=== PATIENT | female | born 1960 | race Caucasian/White ===

== ENCOUNTER 2024-02-27 00:27 | Emergency (ER) | payer MEDICARE, OTHER, SELFPAY ==
[2024-02-27 00:30] VITALS: BP 168/92
--- NOTE | 2024-02-27 01:06 | ED.GENMED ---
History of Present Illness
General
Chief Complaint: Flank Pain
Source: patient
Exam Limitations: none
Time Seen by Provider: 02/27/24 00:52
Travel History
Have you had any contact with someone who has COVID-19?: No
Do you have any symptoms of coronavirus? Fever > 100 degrees, chills, cough, shortness of breath, sore throat, loss of taste or smell, muscle aches, or headache?: No
History of Present Illness
History of Present Illness:
This is a 64 year old female that comes in with c/o left sided flank pain. States that 3 weeks ago she felt like she passed a stone when she was away. States that last week on she had some left sided abd pain but it went away. Then tonight
she started with pain and it is the worse yet. States that the patient goes down into her urethra. States that it also radiates into her back. States that she is nauseated and took Ibuprofen 600mg about 3 hours ago. States that she also has urinary
burning. Denies any fever, chills, chest pain, SOB, vomiting, diarrhea, headache, dizziness.
Past History
Past History
ED Past Medical History: Arrthythmia (Atrial fib), GERD, Psychiatric (Anxiety, ), Other and Other (diverticulosis/PAD, Colitis, GI bleeding)
ED Past Surgical History: Gynecological (Uterine fibroid removed) and Orthopedic (Right rotator cuff surgery)
Social History
Tobacco: Former smoker
Alcohol: Occasional
Personal: (Same sex partner)
Living: with family
Review of Systems
Review of Systems
All Other Systems: ROS reviewed and negative except as documented in HPI and ROS
Constitutional: Reports no symptoms; Denies fever or chills
EENT: Reports no symptoms
Respiratory: Reports no symptoms; Denies cough or trouble breathing
Cardiac: Reports no symptoms; Denies chest pain
ABD/GI: Reports abdominal pain and nausea; Denies vomiting or diarrhea
: Reports dysuria and flank pain (Left sided); Denies frequency or urgency
Musculoskeletal: Reports no symptoms
Skin: Reports no symptoms
Neurological: Reports no symptoms; Denies dizzy or headache
Psychiatric: Reports no symptoms
Phy Exam
General Physical Exam
General Presentation: mild distress
General age: appears stated age
General Skin: warm and dry
General Habitus: normal
General Mental: alert
General Hydration: appears well hydrated
ENT Exam
ENT Exam: TM's normal, pharynx normal and neck supple
Eye Exam
Eye Exam: EOMI
Cardiovascular Exam
Cardiovascular Exam: regular rate/rhythm, no edema, no murmur and normal peripheral pulses
Pulmonary Exam
Pulmonary Exam: lungs clear, no respiratory distress, no rales, chest non tender, no crackles, no rhonchi, no wheezing and no cough
Gastrointestinal Exam
Gastrointestinal Exam: normal bowel sounds, soft, no organomegaly, no pulsatile mass, non distended, cva tenderness (left sided) and tender (Left sided abd tenderness with palpation)
Musculoskeletal Exam
Musculoskeletal Exam: full ROM and no edema
Skin Exam
Skin Exam: normal color, warm/dry, no rash and no petechia
Psychiatric Exam
Psychiatric Exam: normal mood/affect
Course
Orders/Labs/Results
Orders:
Orders
02/27/24 01:05
CT Abd/pel Without Iv Or Oral Urgent
Comment:
Reason For Exam: Left flank pain
0.9% Sodium Chloride 1000 ml [Nss] 1,000 ml IV BOLUS
HYDROmorphone [Dilaudid] 0.5 mg IV NOW STA
Ondansetron Injectable [Zofran] 4 mg IV NOW STA
02/27/24 01:12
Complete Blood Count/With Diff Urgent
Comprehensive Metabolic Panel Urgent
Urinalysis Reflex To Culture Urgent
Date Specimen was Collected: 02/27/24
Time Specimen was Collected: 00:39
Urine Microscopic Reflex Cult Urgent
02/27/24 01:49
Tamsulosin [Flomax] 0.4 mg PO NOW STA
02/27/24 01:54
HYDROmorphone [Dilaudid] 1 mg IV NOW STA
Ketorolac [Toradol] 30 mg IV NOW STA
Abnormal Lab Results
02/27/24
01:12
WBC 12.7 H 10^3/uL
(4.8-10.8)
MCH 32.3 H pg
(27.0-31.0)
Abs Immat Gran (auto) 0.1 H 10^3/uL
(0-0.05)
Absolute Neuts (auto) 11.0 H 10^3/uL
(1.4-6.5)
Absolute Lymphs (auto) 0.8 L 10^3/uL
(1.2-3.4)
Absolute Monos (auto) 0.7 H 10^3/uL
(0.1-0.6)
Neutrophils % 87.1 H %
(42.2-75.2)
Lymphocytes % 6.6 L %
(20.5-51.1)
Sodium 131 L mmol/L
(135-145)
BUN 32 H mg/dl
(7-17)
Glucose 152 H mg/dl
(70-99)
Urine Ketones 1+ A
(Negative)
Ur Occult Blood Reflex 3+ A
(Negative)
Urine RBC 11-15 A /HPF
(0-2)
Urine Bacteria (Reflex) Few A
(Negative)
02/27/24 01:12
02/27/24 01:12
Leukocytosis, Sodium slightly low. Glucose nonfasting. Dehydration. Urine negative for infection.
Vital Signs
Initial and Last Documented VS:
Initial Vital Signs
Temp Pulse Resp BP Pulse Ox
98.1 F 64 26 168/92 98
02/27/24 00:30 02/27/24 00:30 02/27/24 00:30 02/27/24 00:30 02/27/24 00:30
Last Documented Vital Signs
Temp Pulse Resp BP Pulse Ox
98.1 F 64 26 168/92 98
02/27/24 00:30 02/27/24 00:30 02/27/24 00:30 02/27/24 00:30 02/27/24 00:30
MDM/Problems Addressed
Differential Diagnosis Includes:
Renal calculus, UTI,
MDM/Problems Addressed:
This is a 64 year old female that comes in with c/o left flank pain. States that she thinks she passed a kidney stone 3 weeks ago. States that last she also had pain but this went away. Then tonight she started with pain that is worse.
Will get labs, Medicate for pain and get CT scan. Will also give IV fluids.
Back into see patient. Explained that the CT shows she has a 5X2mm stone in the left at the UVJ. Patient will be given Flomax. Patient continues with pain so will further medicate for pain. Explained to patient that she needs to increase her water
intake to 8-8oz glasses daily and will strain her urine. Will give Prescription for Zofran, Percocet and Flomax if patient pain is under control. Patient to follow up with the Urologist. If she would develop fever, increased or changing pain, or is
unable to urinate patient would return to the emergency room. Will recheck after medicated.
Patient states that she is feeling better and she is ready to go home. Will sent prescriptions to her pharmacy. Patient to strain her urine and follow up with the Urologist. Return for any concerns.
Chronic conditions affecting care:
NA
Acute Exacerbation and/or Progression of Chronic Illness:
NA
*Radiology
Radiology exam reviewed: radiology read reviewed (CT night hawk- 5X 2mm calcification in the distal left ureter at the UVJ with mild left hydroureteronephrosis, enlargement of the left kidney and perinephric inflammatory changes compatible with
obstruction. Normal appendix, No calcified gallstones. No bowel obstruction or bowel wall thickening. ) and other (CT cont- NO free fluid nor free air. Atherosclerotic vascular disease. multilevel DDD)
*Pulse Oximetry
Patient hypoxic: no
*EKG
Interpreted by ED Provider?: NA
Rate: EKG- N/A
*Time Study Observer Interpretation
Rate: Time Study Observer- N/A
*Critical Care Note
Total Time (30-74mins, 75-104mins- exclusive of procedures): Not Applicable
ED Attending Note
-
Portions of this chart may have been created with voice recognition software.� Occasional wrong word or��sound alike� substitutions may have occurred due to the inherent limitations of voice recognition software.
Discharge Plan
Departure
Patient Disposition: Home (Routine Discharge)
Date of Disposition: 02/27/24
Time of Disposition: 02:47
Patient with high blood pressure during this ER visit?: Yes
Condition: Good
Covid-19: Not Applicable
Discharge Problem:
Left ureteral calculus
Instructions: Renal Colic (DC), How to Strain Your Urine, BLOOD PRESSURE, Narcotic Pain Medication
Prescriptions:
New
ondansetron 4 mg tablet,disintegrating
4 mg PO Q8H PRN (Reason: nausea and vomiting) Qty: 7 0RF
ketorolac 10 mg tablet
10 mg PO Q8H PRN (Reason: Pain) 5 Days Qty: 15 0RF
oxycodone-acetaminophen [Percocet] 5-325 mg tablet
1 tab PO Q4HPRN PRN (Reason: pain) Qty: 10 0RF
tamsulosin [Flomax] 0.4 mg capsule
0.4 mg PO HS Qty: 7 0RF
No Action
atenolol 25 MG tablet
25 mg PO DAILY
aspirin [Ecotrin Low Strength] 81 MG tablet,delayed release (DR/EC)
81 mg PO DAILY
diltiazem HCl 120 MG tablet
120 mg PO DAILY
metronidazole 500 MG tablet
500 mg PO TID Qty: 15 0RF
levofloxacin [Levaquin] 500 MG tablet
500 mg PO DAILY Qty: 5 0RF
nystatin 5 ML suspension
5 ml PO TID Qty: 15 0RF
Referrals:
Yan Duque MD [Active] - Follow up in 5-7 days
UNKNOWN - PT DOES,NOT KNOW [Family Provider] -
Activity Restrictions/Additional Instructions:
As discussed, you have a 5X2mm stone in the left ureter that is almost to the bladder. Please increase your water intake to 8-8oz glasses daily. You have had 4 prescriptions sent to your Pharmacy. The first is for Flomax that will help relax the
smooth muscle so you can pass the stone. The Second is a narcotic pain medication that will help control the pain. This will also make you tired so please no driving or alcohol when taking. The Third is Zofran that will help with any
nausea/vomiting. The last is Toradol that will be used for pain. PLEASE DO NOT TAKE ANY OTHER ALEVE, ADVIL OR IBUPROFEN WHEN TAKING THE TORADOL. Your Prescriptions have been sent to your Pharmacy. Please strain your urine. Follow up with the
Urologist in the next 5-7 days. IF YOU HAVE INCREASED OR CHANGING PAIN, FEVER, OR YOU HAVE ANY OTHER CONCERNS PLEASE RETURN TO THE EMERGENCY ROOM.
Interventions
Interventions:
*Risk Screen - Suicide Last Done: 02/27/24 00:30
*General Assessment Last Done: 02/27/24 00:30
*Neglect/Abuse Screening Last Done: 02/27/24 00:30
ED- Fall Risk Assessment Last Done: 02/27/24 00:30
*ED COVID-19 Vaccine History Last Done: 02/27/24 00:30
MA-Qieaqq-Dklxfximxf Assessment Last Done: 02/27/24 01:20
ED-Female Genitourinary Assessment Last Done: 02/27/24 01:20
Discharge Date and Time
Print Language: EGYPTIAN
[2024-02-27] MEDS: DILAUDID 0.5 MG IV (01:15)
[2024-02-27] MEDS: ZOFRAN 4 MG IV (01:15)
[2024-02-27] MEDS: NSS 1000 IV (01:15)
[2024-02-27 01:20] VITALS: BMI 31.4
[2024-02-27 01:20] LABS: % Basophils 0.2 % (0-2); % Eosinophils 0.1 % (0-6); % Immature Granulocytes 0.4 % (0-0.5); % Lymphocytes 6.6 % (20.5-51.1); % Monocytes 5.6 % (1.7-9.3); % Neutrophils 87.1 % (42.2-75.2); Absolute Immature Granulocytes 0.1 10^3/uL (0-0.05); Absolute Lymphocytes 0.8 10^3/uL (1.2-3.4); Absolute Monocytes 0.7 10^3/uL (0.1-0.6); Hematocrit 39.7 % (37.0-47.0); Hemoglobin 14.3 g/dL (12.0-16.0); Mean Corpuscular Hgb 32.3 pg (27.0-31.0); Mean Corpuscular Volume 89.6 fL (81.0-99.0); Mean Platelet Volume 10.3 fL (7.4-10.4); Nucleated Red Blood Cells % 0 %; Platelet Count 215 10^3/uL (130-400); Red Blood Cell Count 4.43 10^6/uL (4.20-5.40); Red Cell Dist. Width 12.7 % (11.5-14.5); White Blood Cell Count 12.7 10^3/uL (4.8-10.8)
[2024-02-27 01:21] LABS: Urine Albumin Negative (Neg - Trace); Urine Bilirubin Negative (Negative); Urine Character Clear (Clear); Urine Color Yellow; Urine Glucose Negative (Negative); Urine Ketone 1+ (Negative); Urine Leukocyte Negative (Negative); Urine Nitrite Negative (Negative); Urine Occult Blood 3+ (Negative); Urine Specific Gravity 1.015 (<1.030); Urine Urobilinogen Negative (Neg - 1+); Urine pH 6.5 (5.0-9.0)
[2024-02-27 01:34] LABS: ALT (SGPT) 19 U/L (0-35); AST (SGOT) 25 U/L (14-36); Albumin 4.3 g/dl (3.5-5.0); Alkaline Phosphatase 58 U/L (38-126); Blood Urea Nitrogen 32 mg/dl (7-17); Calcium 9.8 mg/dl (8.4-10.2); Carbon Dioxide 22 mmol/L (22-30); Chloride 104 mmol/L (98-107); Estimated Creatinine Clearance 52 ml/min; Glucose 152 mg/dl (70-99); Potassium 4.3 mmol/L (3.5-5.1); Sodium 131 mmol/L (135-145); Total Bilirubin 0.4 mg/dl (0.2-1.3); Total Protein 7.2 g/dl (6.3-8.2); eGFR > 60.00
[2024-02-27 01:35] LABS: Urine Bacteria Few (Negative); Urine White Cell 0-2 /HPF (0-5)
[2024-02-27] MEDS: TORADOL 30 MG IV (02:02)
[2024-02-27] MEDS: FLOMAX 0.400000000000000022 MG PO (02:02)
[2024-02-27] MEDS: DILAUDID 1 MG IV (02:02)
[2024-02-27] MEDS: PERCOCET 5/325 1 TABLET PO (03:18)
[2024-02-27 03:22] VITALS: BP 179/85
== END 2024-02-27 03:32 | disposition home or self-care (01) ==
LOC: EMR 00:27
PROVIDERS: Clinical Nurse Specialist Family Health; EMERGENCY PHYSICIAN Emergency Medicine
DX: N20.2 Calculus of kidney with calculus of ureter (principal); R03.0 Elevated blood-pressure reading, without diagnosis of hypertension
CPT/HCPCS: 99284; 96374; 96375 ×2; 96361; 96376; 74176; 80053; 81003; 81015; 85025

== ENCOUNTER → 2024-10-23 11:09 | Outpatient (REF) | payer MEDICARE, OTHER, SELFPAY | LOC: WDC 11:09 | PROVIDERS: ATTENDING PHYSICIAN Family Medicine | DX: Z12.31 Encounter for screening mammogram for malignant neoplasm of breast (principal) | CPT/HCPCS: 77063; 77067 ==

== ENCOUNTER 2025-06-28 06:30 | Day surgery (SDC) | payer MEDICARE, OTHER, SELFPAY | END 2025-06-28 09:24 | disposition home or self-care (01) | LOC: GI 06:30 | PROVIDERS: ATTENDING PHYSICIAN Internal Medicine Gastroenterology | DX: Z12.11 Encounter for screening for malignant neoplasm of colon (principal); D12.3 Benign neoplasm of transverse colon; D12.5 Benign neoplasm of sigmoid colon; K57.30 Diverticulosis of large intestine without perforation or abscess without bleeding; K62.1 Rectal polyp | CPT/HCPCS: 45385; 45380; 88305 ==

== ENCOUNTER → 2025-09-29 08:31 | Outpatient (REF) | payer MEDICARE, OTHER, SELFPAY | LOC: HWRAD 08:31 | PROVIDERS: ATTENDING PHYSICIAN Family Medicine | DX: Z87.891 Personal history of nicotine dependence (principal) | CPT/HCPCS: 71271 ==